=== PATIENT | male | born 1950 | race Caucasian/White ===

== ENCOUNTER 2023-10-17 13:54 | Emergency (ER) | payer MEDICARE, SELFPAY ==
[2023-10-17 14:13] VITALS: BP 124/89
[2023-10-17 14:42] LABS: % Basophils 0.2 % (0-2); % Immature Granulocytes 1.6 % (0-0.5); % Lymphocytes 4.8 % (20.5-51.1); % Monocytes 12.6 % (1.7-9.3); % Neutrophils 80.8 % (42.2-75.2); Absolute Immature Granulocytes 0.3 10^3/uL (0-0.05); Absolute Lymphocytes 0.9 10^3/uL (1.2-3.4); Absolute Monocytes 2.5 10^3/uL (0.1-0.6); Absolute Neutrophils 15.8 10^3/uL (1.4-6.5); Hematocrit 43.3 % (39.0-52.0); Hemoglobin 15.4 g/dL (13.0-18.0); Mean Corp Hgb Conc. 35.6 g/dL (33.0-37.0); Mean Corpuscular Hgb 31.1 pg (27.0-31.0); Mean Corpuscular Volume 87.5 fL (80.0-94.0); Mean Platelet Volume 10.4 fL (7.4-10.4); Nucleated Red Blood Cells % 0 % (-); Platelet Count 253 10^3/uL (130-400); Red Blood Cell Count 4.95 10^6/uL (4.70-6.10); Red Cell Dist. Width 13.3 % (11.5-14.5); White Blood Cell Count 19.6 10^3/uL (4.8-10.8)
[2023-10-17 15:01] LABS: ALT (SGPT) 92 U/L (0-50); AST (SGOT) 97 U/L (17-59); Alkaline Phosphatase 144 U/L (38-126); Blood Urea Nitrogen 17 mg/dl (9-20); Calcium 8.5 mg/dl (8.4-10.2); Carbon Dioxide 23 mmol/L (22-30); Chloride 101 mmol/L (98-107); Glucose 166 mg/dl (70-99); Lipase 50 U/L (23-300); Potassium 3.3 mmol/L (3.5-5.1); Sodium 131 mmol/L (135-145); Total Bilirubin 0.9 mg/dl (0.2-1.3); Total Protein 6.2 g/dl (6.3-8.2); eGFR > 60.00
--- NOTE | 2023-10-17 18:44 | ED.GENMED ---
History of Present Illness
General
Chief Complaint: Abdominal Symptoms
Source: patient
Exam Limitations: none
Time Seen by Provider: 10/17/23 18:17
Travel History
Have you had any contact with someone who has COVID-19?: No
Do you have any symptoms of coronavirus? Fever > 100 degrees, chills, cough, shortness of breath, sore throat, loss of taste or smell, muscle aches, or headache?: No
History of Present Illness
History of Present Illness:
This is a 72 year old male that comes in with c/o nausea, vomiting and diarrhea. States that a week ago on Saturday he just did not feel well. States that he is a 'Pot head'. States that he started with nausea. Then on Saturday he just couldn't get OOB.
Saturday he started with diarrhea and then on he had a fever of 102. States that he has been using pot since his . States that he just wanted to stop. States that he thinks he is going through withdraw. States that he last
used a week ago on Saturday. State that the diarrhea has stopped but he still has abd cramping and he has not vomited today. States that he is nauseated and even water makes him nauseated. States that when he had the fever he had chills. States that
he has been SOB with walking. Denies any chest pain, headache, dizziness, urinary burning.
Past History
Past History
ED Past Medical History: COPD and Other (Renal calculus, )
ED Past Surgical History: Orthopedic (Right hip replacement)
Social History
Tobacco: Former smoker
Alcohol: None
Drug: Marijuana
Personal:
Living: with family
Review of Systems
Review of Systems
All Other Systems: ROS reviewed and negative except as documented in HPI and ROS
Constitutional: Reports fever and chills
EENT: Reports no symptoms
Respiratory: Reports trouble breathing; Denies cough
Cardiac: Reports no symptoms; Denies chest pain
ABD/GI: Reports abdominal pain (Cramping), nausea, vomiting and diarrhea
: Reports no symptoms; Denies dysuria, frequency or urgency
Musculoskeletal: Reports no symptoms
Skin: Reports no symptoms
Neurological: Reports no symptoms; Denies dizzy or headache
Psychiatric: Reports no symptoms
Phy Exam
General Physical Exam
General Presentation: no apparent distress
General age: appears stated age
General Skin: warm and dry
General Habitus: elderly
General Mental: alert
General Hydration: appears well hydrated
ENT Exam
ENT Exam: TM's normal, pharynx normal and neck supple
Eye Exam
Eye Exam: EOMI
Cardiovascular Exam
Cardiovascular Exam: regular rate/rhythm, no edema and normal peripheral pulses
Pulmonary Exam
Pulmonary Exam: lungs clear, no respiratory distress, no rales, chest non tender, no crackles, no rhonchi, no wheezing and no cough
Gastrointestinal Exam
Gastrointestinal Exam: normal bowel sounds, non tender, soft, no organomegaly, no pulsatile mass and non distended
Musculoskeletal Exam
Musculoskeletal Exam: full ROM and no edema
Skin Exam
Skin Exam: normal color, warm/dry, no rash and no petechia
Course
Orders/Labs/Results
Orders:
Orders
10/17/23 14:27
CBC/With Diff [Complete Blood Count/With Diff] Urgent
Comprehensive Metabolic Panel Urgent
Lipase Urgent
10/17/23 18:43
0.9% Sodium Chloride 1000 ml [Nss] 1,000 ml IV BOLUS
Ondansetron Injectable [Zofran] 8 mg IV NOW STA
CR Chest - 2 Views Urgent
Comment:
Reason For Exam: SOB
10/17/23 18:51
US Abdomen Complete/Upper Urgent
Comment:
Reason For Exam: Elevated liver enzymes, Nausea/vomiting
10/17/23 18:54
Electrocardiogram (*1) Urgent
Reason for Study: Shortness of Breath
EKG- Treatment ONCE
10/17/23 19:34
Urinalysis Reflex To Culture Urgent
Date Specimen was Collected: 10/17/23
Time Specimen was Collected: 19:24
Urine Drug Abuse Screen Urgent
Date Specimen was Collected: 10/17/23
Time Specimen was Collected: 19:24
Urine Microscopic Reflex Cult Urgent
Urine Culture Urgent
TAMIKO Source: U
Specimen Description:
Date Specimen was Collected: 10/17/23
Time Specimen was Collected: 19:24
10/17/23 20:11
NT-proBNP Urgent
Troponin I Urgent
10/17/23 20:18
CefTRIAXone [Rocephin] 1,000 mg IV NOW STA
Abnormal Lab Results
10/17/23 10/17/23
14:27 19:34
WBC 19.6 H 10^3/uL
(4.8-10.8)
MCH 31.1 H pg
(27.0-31.0)
Abs Immat Gran (auto) 0.3 H 10^3/uL
(0-0.05)
Absolute Neuts (auto) 15.8 H 10^3/uL
(1.4-6.5)
Absolute Lymphs (auto) 0.9 L 10^3/uL
(1.2-3.4)
Absolute Monos (auto) 2.5 H 10^3/uL
(0.1-0.6)
Immature Gran % 1.6 H %
(0-0.5)
Neutrophils % 80.8 H %
(42.2-75.2)
Lymphocytes % 4.8 L %
(20.5-51.1)
Monocytes % 12.6 H %
(1.7-9.3)
Sodium 131 L mmol/L
(135-145)
Potassium 3.3 L mmol/L
(3.5-5.1)
Glucose 166 H mg/dl
(70-99)
AST 97 H U/L
(17-59)
ALT 92 H U/L
(0-50)
Alkaline Phosphatase 144 H U/L
(38-126)
Total Protein 6.2 L g/dl
(6.3-8.2)
Albumin 3.0 L g/dl
(3.5-5.0)
Urine Ketones Trace A
(Negative)
Ur Occult Blood Reflex 3+ A
(Negative)
Urine Nitrite (Reflex) Positive A
(Negative)
Urine Bilirubin 1+ A
(Negative)
Leukocyte Esterase Rfl 2+ A
(Negative)
Urine WBC (Reflex) >100 A /HPF
(0-5)
Urine Bacteria (Reflex) Many A
(Negative)
Urine Albumin (Reflex) 1+ A
(Neg - Trace)
U Marijuana (THC) Screen Positive H
(Negative)
10/17/23 14:27
10/17/23 14:27
Leukocytosis, Sodium slightly low. Potassium slightly low. Glucose nonfasting. AST/ALT elevation. Alk phos elevation. Total protein slightly low. Albumin low.
Vital Signs
Initial and Last Documented VS:
Initial Vital Signs
Temp Pulse Resp BP Pulse Ox
99.4 F 119 18 124/89 95
10/17/23 14:13 10/17/23 14:13 10/17/23 14:13 10/17/23 14:13 10/17/23 14:13
Last Documented Vital Signs
Temp Pulse Resp BP Pulse Ox
99.4 F 119 18 124/89 95
10/17/23 14:13 10/17/23 14:13 10/17/23 14:13 10/17/23 14:13 10/17/23 14:13
MDM/Problems Addressed
Differential Diagnosis Includes:
Drug withdraw, Abnormal liver enzymes, Gallbladder disease
MDM/Problems Addressed:
This is a 72 year old male that comes in with c/o nausea, vomiting, diarrhea, States that this started week ago on Saturday. States that he had a fever last . State that the diarrhea has stopped and he has not vomited today but he still has
abd cramping and nausea. States that even the smell of food makes him nauseated.
Will get labs, US and urine. Will give IV fluids.
Back into see patient. Explained that he has a urinary tact infection. This is most likely the cause of his nausea. Will give patient IV antibiotics here and a prescription for home. Will also give patient a prescription for Zofran to help with any
nausea. Ptient to follow up with the family doctor for recheck. Return with fever, or any other concerns.
Chronic conditions affecting care:
NA
Acute Exacerbation and/or Progression of Chronic Illness:
NA
*Radiology
Radiology exam reviewed: radiology read reviewed (Chest-No acute cardiopulmonary process. US-limited visualization in the midline. MOderate bowel gas. Fatty infiltration of the liver and the pancreas. The pancreatic tails, IVC and aorta could not
be fully evaluated. There are 2 nonmobile calcifications in the gallbladder most consistent with ) and other (US cont- gallstones. Gallbladder otherwise unremarkable. Small cyst in the right hepatic lobe. Parapelvic cyst in the left kidney. )
*Pulse Oximetry
Patient hypoxic: no
*Welding [employer] Interpretation
Rate: Welding [employer]- N/A
*Critical Care Note
Total Time (30-74mins, 75-104mins- exclusive of procedures): Not Applicable
ED Attending Note
-
Portions of this chart may have been created with voice recognition software.� Occasional wrong word or��sound alike� substitutions may have occurred due to the inherent limitations of voice recognition software.
Discharge Plan
Departure
Patient Disposition: Home (Routine Discharge)
Date of Disposition: 10/17/23
Time of Disposition: 20:26
Patient with high blood pressure during this ER visit?: No
Condition: Good
Covid-19: Not Applicable
Discharge Problem:
Urinary tract infection
Instructions: Urinary Tract Infection, Adult (DC)
Prescriptions:
New
sulfamethoxazole-trimethoprim [Bactrim DS] 800-160 mg tablet
1 tab PO BID Qty: 14 0RF
ondansetron 4 mg tablet,disintegrating
4 mg PO Q8H PRN (Reason: nausea and vomiting) Qty: 10 0RF
Referrals:
Jaymie Hoyt MD [Family Provider] - Call in 1-3 days for appt
Activity Restrictions/Additional Instructions:
As discussed, your blood work shows that your WBC are elevated. This is due to the fact that you have a urinary tract infection. You have been given IV antibiotic here and a prescription for home for the next 7 days. Please take as directed with
food. Please increase your water intake to 8-8oz glasses daily. Your US shows that you also have a fatty liver and that you have gallstones. Please follow up with the family doctor for recheck. You have also been given a prescription for Zofran that
will help with any nausea/vomiting. IF YOU HAVE FEVER, ABD PAIN, OR YOU HAVE ANY OTHER CONCERNS PLEASE RETURN TO THE EMERGENCY ROOM.
Interventions
Interventions:
*Risk Screen - Suicide Last Done: 10/17/23 14:21
*General Assessment Last Done: 10/17/23 14:21
*Neglect/Abuse Screening Last Done: 10/17/23 14:21
*ED COVID-19 Vaccine History Last Done: 10/17/23 14:21
[2023-10-17 19:44] LABS: Urine Albumin 1+ (Neg - Trace); Urine Bilirubin 1+ (Negative); Urine Character Slightly Cloudy (Clear); Urine Color Yellow; Urine Glucose Negative (Negative); Urine Ketone Trace (Negative); Urine Leukocyte 2+ (Negative); Urine Nitrite Positive (Negative); Urine Occult Blood 3+ (Negative); Urine Specific Gravity 1.015 (<1.030); Urine Urobilinogen Negative (Neg - 1+)
[2023-10-17 19:53] LABS: Urine Squamous Cell 0-2 /LPF (Few); Urine White Cell >100 /HPF (0-5)
[2023-10-17 19:54] LABS: Urine Bacteria Many (Negative)
[2023-10-17 20:04] LABS: Amphetamines Negative (Negative); Barbiturates Negative (Negative); Benzodiazepines Negative (Negative); Buprenorphine Negative (Negative); Cocaine Negative (Negative); Marijuana Positive (Negative); Methadone Negative (Negative); Methamphetamines Negative (Negative); Opiates Negative (Negative); Phencyclidine Negative (Negative); Tricyclic Antidepressants Negative (Negative)
[2023-10-17] MEDS: ZOFRAN 8 MG IV (20:13)
[2023-10-17] MEDS: NSS 1000 IV (20:13)
[2023-10-17 20:21] VITALS: BP 117/88
[2023-10-17 20:22] VITALS: BMI 34.7
[2023-10-17 20:30] VITALS: BP 111/84
[2023-10-17 20:47] LABS: NT-proBNP 303 pg/ml; Troponin I < 0.012 ng/ml
[2023-10-17] MEDS: ROCEPHIN 1000 MG IV (20:50)
[2023-10-17 21:00] VITALS: BP 109/80
== END 2023-10-17 21:53 | disposition home or self-care (01) ==
LOC: EMR 13:54
PROVIDERS: Clinical Nurse Specialist Family Health; Emergency Medicine; EMERGENCY PHYSICIAN Student in an Organized Health Care Education/Training Program; FAMILY PHYSICIAN Family Medicine
DX: N39.0 Urinary tract infection, site not specified (principal); N28.1 Cyst of kidney, acquired; K76.0 Fatty (change of) liver, not elsewhere classified; Z87.891 Personal history of nicotine dependence; K76.89 Other specified diseases of liver
CPT/HCPCS: 99285; 96374; 96375; 96361; 71046; 76700; 80053; 80306; 81003; 81015; 83690; 83880; 84484; 85025; 87086; 87088; 87186